=== PATIENT | male | born 1960 | race Caucasian/White ===

== ENCOUNTER 2018-12-08 16:44 | Emergency (ER) | payer SELFPAY ==
[~2018-12-08] VITALS: Ht 182.9 cm; Wt 84.8 kg
[2018-12-08 17:19] LABS: BASOPHILS # (AUTO) 0.1 /CMM (0.0-0.2); BASOPHILS % (AUTO) 1.3 % (0.0-2.0); EOSINOPHILS % (AUTO) 3.7 % (0.0-6.0); HEMATOCRIT 44 % (39-51); HEMOGLOBIN 15.3 g/dL (13.5-17.5); LYMPHOCYTES # (AUTO) 1.7 /CMM (0.8-4.8); LYMPHOCYTES % (AUTO) 37.4 % (20.0-44.0); MEAN CORPUSCULAR HGB CONC 35 g/dl (31.0-36.0); MEAN CORPUSCULAR VOLUME 108 fL (80-96); MONOCYTES # (AUTO) 0.6 /CMM (0.1-1.30); MONOCYTES % (AUTO) 12.8 % (2.0-12.0); NEUTROPHILS % (AUTO) 44.8 % (43.0-81.0); PLATELET COUNT (AUTO) 120 /CMM (150-450); RED BLOOD CELL COUNT(AUTO) 4.03 MIL/uL (4.5-6.0); WHITE BLOOD COUNT (AUTO) 4.5 K/uL (4.3-11.0)
[2018-12-08 17:28] LABS: CALCIUM, SERUM 8.5 mg/dL (8.5-10.1); CREATININE 0.7 mg/dL (0.6-1.3); POTASSIUM 3.3 mmol/L (3.5-5.1)
[2018-12-08 17:35] LABS: ALBUMIN 3.7 g/dL (3.4-5.0); BILIRUBIN,DIRECT 0.6 mg/dL (0.0-0.2); BILIRUBIN,TOTAL 1.6 mg/dL (0.2-1.0); TOTAL PROTEIN, SERUM 7.5 g/dL (6.4-8.2)
[2018-12-08 17:36] LABS: SALICYLATE 2.1 mg/dL (2.8-20.0)
[2018-12-08 19:50] VITALS: BP 147/80
[2018-12-08] MEDS ORDERED: TDAP [DIPH/PERTUSSIS/TET] 0.5 ML VIAL IM ONE ×2 (20:00→20:23)
--- NOTE | 2018-12-08 20:47 | NUR ---
PATIENT REFUSED TO SIGN DISCHARGE PAPERWORK, PT AMBULATORY WITH STEADY GAIT, LAST VSS, PT DENIES BEING HOMELESS AND REFUSES TO SIGN HOMELESS D/C PAPERWORK. COSIGNED WITH ER STAFF. PT LEFT WITHOUT BEING PROPERLY DISCHARGED AND NOT PROVIDED ANY HOMELESS REFERRALS.
[2018-12-08 21:34] LABS: LYMPHOCYTES % (MANUAL) 46 % (16-48); MONOCYTES % (MANUAL) 10 % (0-11.0); NEUTROPHILS % (MANUAL) 44 (42-76)
== END 2018-12-08 20:55 | disposition left against medical advice (07) ==
LOC: ER 16:44
DX: F10.129 Alcohol abuse with intoxication, unspecified (principal); S80.01XA Contusion of right knee, initial encounter; S00.211A Abrasion of right eyelid and periocular area, initial encounter; Z59.0 Homelessness; W18.39XA Other fall on same level, initial encounter; Y93.89 Activity, other specified; Y92.89 Other specified places as the place of occurrence of the external cause; Y99.8 Other external cause status; Y90.8 Blood alcohol level of 240 mg/100 ml or more
CPT/HCPCS: 36415; 70450; 73564; 80048; 80076; 80307; 80329; 85025; 90471; 90715; 99284; G0480